=== PATIENT | male | born 2000 | race Caucasian/White ===

== ENCOUNTER 2021-07-18 01:29 | Emergency (ER) | payer BC | END 2021-07-18 02:50 | disposition home or self-care (01) | LOC: JD.ED 01:29 | DX: J06.9 Acute upper respiratory infection, unspecified (principal); E66.9 Obesity, unspecified; Z68.36 Body mass index [BMI] 36.0-36.9, adult; Z88.0 Allergy status to penicillin; Z20.822 Contact with and (suspected) exposure to COVID-19 | CPT/HCPCS: 87804; 99284; U0002 ==